=== PATIENT | male | born 1955 | race Caucasian/White ===

== ENCOUNTER 2025-10-04 15:40 | Emergency (ER) | payer MEDICARE, SELFPAY ==
--- OUTSIDE RECORDS SUMMARY | 2025-03-03 09:00 | XMS_ITS ---
Author Organization Dianna Barone MD, Address [address] [place] [address], [place] [address] Care Team Providers Care Portable Router Operator Name Role Phone Dianna Barone Primary Care Provider Ora Falcon Unavailable Angeles Cabezas Unavailable [phone] Encounters Encounter Location Date Provider Diagnosis [facility] [address] [place] [address] 03/03/2025 Angeles Cabezas Plan Of Treatment Next Appt Details Provider Name:Dianna Barone, 01:00:00 PM, [address], [place], [address], Provider Name:Ora boykin, 03/04/2026 12:20:00 PM, [address], [place], [address], Progress Notes * STUARTAntonyDOB: [birth year] (70 yo M)Acc No.[id number]:03/03/2025 MCA Plus Patient: Antony HOANG Provider: Alok Cabezas NP :1955 A ge:70 Y S ex:Male Date:03/03/2025 Address:[address] [place] [address], [phone] Pcp:Dianna Barone Subjective: * Chief Complaints: * * Medical History: Objective: * Vitals: Assessment: Plan: * Treatment: * Billing Information: * Visit Code: * Procedure Codes: Care Plan Details* * Electronic signature of Ana Cabezas NP on 10/04/2025 at 04:26 PM AQUACULTURE PROGRAM DIRECTOR Sign off status: Pending * Provider: Alok Cabezas NP Date: 0 03/03/2025 Generated for Uma marin/Rita/Carlos on: 12/05/2024 04:26 PM AQUACULTURE PROGRAM DIRECTOR
--- NOTE | ~2025-10-04 | XR_ITS ---
EXAMINATION: XR forearm LT 2V, XR wrist LT 2V DATE: 10/04/2025 17:09 INDICATION: Fracture. Post cast placement. TECHNIQUE: 2 views were obtained. COMPARISON: Previous study of same date. FINDINGS: Radiograph is made through plaster cast.. Comminuted impacted fracture of distal radius and fracture of ulnar styloid process are noted again. Mild angular deformity of the fracture at the distal radius. Soft tissue swelling at the fracture sites. IMPRESSION: 1. Fractures of distal radius and ulnar styloid process as described above. Reviewed, dictated and finalized at location T. [employer] IMPRESSION: 1. Fractures of distal radius and ulnar styloid process as described above.
--- NOTE | ~2025-10-04 | XR_ITS ---
EXAMINATION: XR wrist LT min 3V DATE: 10/04/2025 16:20 INDICATION: Trauma. TECHNIQUE: 4 views were obtained. COMPARISON: None. FINDINGS: Acute comminuted impacted fractures of distal radius. Mild angular deformity at the fracture site. Fracture of ulnar styloid process. IMPRESSION: 1. Acute comminuted impacted angulated fracture of distal radius and fracture of ulnar styloid process are noted at the left wrist. Reviewed, dictated and finalized at location T. [employer] IMPRESSION: 1. Acute comminuted impacted angulated fracture of distal radius and fracture o f ulnar styloid process are noted at the left wrist.
[2025-10-04 15:47] VITALS: BP 150/68; PULSE 61; RESP 16; TEMP 36.6; O2SAT 100
--- OUTSIDE RECORDS SUMMARY | 2025-10-04 16:26 | XMS_ITS | Clinical Summary ---
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 Gender Identity Not on file Sexual Orientation Not on file Plan of Treatment Health Maintenance Due Date Last Done Comments 1 YR COLONOSCOPY 1955 10 YR COLONOSCOPY 1955 2 YR COLONOSCOPY 1955 3 MONTHS COLONOSCOPY 1956 3 YR COLONOSCOPY 1956 4 YR COLONOSCOPY 1956 5 YEAR SIGMOIDOSCOPY 1956 5 YR COLONOSCOPY 1956 6 MONTHS COLONOSCOPY 1956 6 YR COLONOSCOPY 1956 7 YR COLONOSCOPY 1956 8 YR COLONOSCOPY 1956 9 YR COLONOSCOPY [address]T [address] Colonography 1955 Colorectal Cancer Screening 1955 MEDICARE ANNUAL WELLNESS VISIT 1955 HEPATITIS C SCREENING 01/27/1974 LIPID TESTING 01/27/1974 DTAP/TDAP/TD (1 - Tdap) 01/27/1975 ADDRESS PSA 1996 Pneumococcal 50+ (1 of 1 - PCV) 01/27/2006 ZOSTER (1 of 2) 01/27/2006 COVID-19 VACCINE (5 - 2025-26 season) 2025 07/27/2022, 08/10/2021, 01/25/2021, Additional history exists INFLUENZA (#1) 2025 07/26/2021, 04/2019, 07/22/2019, Additional history exists Diabetes Screening 01/17/2027 01/18/2024, 0 02/13/2023, 04/28/2021, Additional history exists MENINGOCOCCAL B (MENB) Aged Out No lo nger eligible based on patient's age [place] [id number] [facility] HMO OUT OF STATE MEDICARE A AND B * Guarantor: Antony Davidson Account Type Relation to Patient Date of Phone Billing Address Health [facility] Self [address] [place] [address] [place] [address]
--- OUTSIDE RECORDS SUMMARY | 2025-10-04 16:26 | XMS_ITS | Clinical Summary ---
Author Organization [facility], a Department of [facility] Address [address] [facility] [place] [address] Care Team Providers Care Blade Boner Name Role Phone Dianna Barone MD Primary Care Provider [phone] Allergies No known active allergies Medications DOCOSAHEXANOIC ACID/EPA (FISH OIL PO) Take 1,000 mg by mouth daily Active multivitamin (THERAGRAN,THERA ) tab Take 1 Tab by mouth daily Active omeprazole (PRILOSEC) 20 mg capsule Take 20 mg by mouth daily 05/18/2021 Active Active Problems No known active problems Social History Tobacco Use Types Packs/Day Years Used Date Smoking Tobacco: Never Smokeless Tobacco: Never Alcohol Use Standard Drinks/Week Comments No 0 (1 standard drink = 0.6 oz pur e alcohol) Sex and Gender Information Value Date Recorded Sex Assigned at Not on file Legal Sex Male 9:44 PM EST Gender Identity Not on file Sexual Orientation Not on file Last Filed Vital Signs Vital Sign Reading Time Taken Comments Blood Pressure 97/59 02/20/2023 12:46 PM CDT Pulse 62 02/20/2023 12:46 PM CDT Temperature 36.4 C (97.6 F) 02/20/2023 12:26 PM CDT Respiratory Rate 18 02/20/2023 12:46 PM CDT Oxygen Saturation 100% 02/20/2023 12:46 PM CDT Inhaled Oxygen Concentration - - Weight 57.7 kg (127 lb 4.8 oz) 02/20/2023 11:03 AM CDT Height 177.8 cm (5' 10) 02/20/2023 11:03 AM CDT Body Mass Index 18.27 02/20/2023 11:03 AM CDT Plan of Treatment Health Maintenance Due Date Last Done Comments Colorectal Cancer Screening - external PCP / no colon specialist 1955 Well Visit 01/27/1959 BMI followup 01/27/1974 Depression Screening 01/27/1974 Tdap/Td Vaccination (1 - Tdap) 01/27/1977 Pneumococcal Vaccination (1 of 1 - PCV) 01/27/2006 Zoster (Shingrix) Vaccinatio n (1 of 2) 01/27/2006 Lab-Lipid Screening 09/16/2013 Influenza Vaccination (#1) 05/16/202507/22, 07/29/2015, 09/02/2014, Additional history exists COVID-19 Vaccine (2024-2 6 season) 2025 08/10/2021, 01/25/2021, 12/22/2020 Insurance MEDICARE REPLACEMENT Care Teams Blade Boner Relationship Specialty Start Date End Date Dianna Barone MD PCP - General Internal Medicine 06/14/21
--- OUTSIDE RECORDS SUMMARY | 2025-10-04 16:26 | XMS_ITS | Encounter Summary ---
Author Organization [facility] Address [address] [place] [address] Care Team Providers Care Fiber Analyst Name Role Phone Dianna Barone MD Primary Care Provider [phone] Marielena Albarado MD Unavailable Dianna Barone MD Primary Care Provider [phone] Encounter Details Date Type Department Care Team (Late Contact Info) Description 01/29/2025 Orders Only [facility] PATIENT ACCESS [address] [place] [address] [place], [place] [address] [place] [address] Routine general medical examination at a health care facility (Primary Dx); Atherosclerosis of iqugmiut coronary artery, unspecified whether angina present, unspecified whether iqugmiut or transplanted heart; Hyperlipidemia, unspecified hyperlipidemia type; Vitamin D deficiency; Impaired fasting glucose Social History Tobacco Use Types Packs/Day Years Used Date Smoking Tobacco: Never Smokeless Tobacco: Never Alcohol Use Standard Drinks/Week Comments No 0 (1 standard drink = 0.6 oz pur e alcohol) Sex and Gender Information Value Date Recorded Sex Assigned at Not on file 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 Gender Identity Not on file Sexual Orientation Not on file documented as of this encounter Plan of Treatment Upcoming Encounters Date Type Department Care Team (Late st Contact Info) Description 09/17/2026 3:15 PM SANITARY CHEMIST Office Visit [facility] - Cardiology [address] [place] [address], [place] [address] Kervin Raymond MD [address] [facility] [address] [place] [address] documented as of this encounter Results * Lipid Panel with Reflex (01/29/2025 11:54 AM CDT) [facility] Cholesterol 118 0 - 199 mg/dL 01/29/2025 1:29 PM [facility] Comment: ATP III Total Cholesterol Classification: <200 mg/dL Desirable 200-239 mg/dL Borderline high >239 mg/dL High Triglycerides 57 0 - 149 mg/dL 01/29/2025 1:29 PM [facility] Comment: ATP III Triglycerides Classification: <150 mg/dL Normal 150-199 mg/dL Borderline high 200-499 mg/dL High >499 mg/dL Very high HDL Cholesterol 52 40 - 100 mg/dL 01/29/2025 1:29 PM [facility] Comment: ATP III HDL Cholesterol Classification: <40 mg/dL Low >59 mg/dL High LDL Cholesterol Friedewald Equation 55 0 - 129 mg/dL 01/29/2025 1:29 PM [facility] Comment: ATP III LDL Cholesterol Classification: <100 mg/dL Optimal 100-129 mg/dL Near optimal/above optimal 130-159 mg/dL Borderline high 160-189 mg/dL High >189 mg/dL Very high Non-HDL Cholesterol 66 0 - 159 mg/dL 01/29/2025 1:29 PM [facility] Chol/HDL Ratio 2.3 01/29/2025 1:29 PM [facility] Comment: Non-fasting lipids are endorsed by the 2013 [place] [employer]/[place] [employer] (ACC/AHA) guidelines, in which a follow-up fasting sample is recommended if triglycerides exceed normal levels. Fasting samples are also recommended prior to starting a treatment that could result in high triglycerides/hyperlipidemia and for monitoring of increased triglyceride/hyperlipidemia in familial hyperlipidemia. Plasma BLOOD SPECIMEN / Unknown Venipuncture / -0.01 mL 01/29/2025 11:54 AM CDT 01/29/2025 1:03 PM T us Angeles Lobato Case [facility] LAB BLOOD ORDERABLES Final R esult [facility] [address] [place] [address], [facility] [phone] [facility] [address] [facility] [place] [address], [place] [address] * (ABNORMAL) Comprehensive Metabolic Panel (01/29/2025 11:54 AM T) Glucose 100(H) 70 - 99 mg/dL 01/29/2025 1:29 PM [facility] BUN 10 7 - 21 mg/dL 01/29/2025 1:29 PM [facility] Creatinine 0.75 0.50 - 1.20 mg/dL 01/29/2025 1:29 PM [facility] eGFR CKD-EPI DERIVED 2020 98 60 - 200 mL/min/(1. 73_m2) 01/29/2025 1:29 PM [facility] Comment: This estimate should be used for screening purposes only. A creatinine clearance should be obtained for use adjusting medication dosages or when choosing potentially nephrotoxic medications. Reported eGFR is based on the CKD-EPI 2020 equation that does not use a race coefficient. Calcium 9.0 8.5 - 10.2 mg/dL 01/29/2025 1:29 PM [facility] Sodium 141 136 - 145 mmol/L 01/29/2025 1:29 PM [facility] Potassium 4.2 3.4 - 5.1 mmol/L 01/29/2025 1:29 PM [facility] Chloride 104 98 - 107 mmol/L 01/29/2025 1:29 PM [facility] CO2 30(H) 22 - 29 mmol/L 01/29/2025 1:29 PM [facility] Anion Gap 7 5 - 19 mmol/L 01/29/2025 1:29 PM [facility] Albumin 3.8 3.5 - 5.2 g/dL 01/29/2025 1:29 PM [facility] Bilirubin, Total 0.4 0.0 - 1.2 mg/dL 01/29/2025 1:29 PM [facility] Alkaline Phosphatase 77 40 - 129 U/L 01/29/2025 1:29 PM [facility] Protein, Total 6.3(L) 6.4 - 8.3 g/dL 01/29/2025 1:29 PM [facility] ALT (SGPT) 17 0 - 50 U/L 01/29/2025 1:29 PM [facility] AST (SGOT) 22 0 - 50 U/L 01/29/2025 1:29 PM [facility] Plasma BLOOD SPECIMEN / Unknown Venipuncture / -0.01 mL 01/29/2025 11:54 AM T 01/29/2025 1:03 PM T Angeles Cabezas [facility] BLOOD ORDERABLES Final R esult [facility] [address] [place] [address] [place] [address], [facility] [phone] [facility] [address] [facility] [place] [address] [place] [facility] * CBC with Differential (01/29/2025 11:54 AM T) WBC 5.35 4.50 - 11.00 10*3/uL 01/29/2025 1:05 PM [facility] RBC 4.24 4.20 - 5.70 10*6/uL 01/29/2025 1:05 PM [facility] HGB 13.2 12.0 - 17.5 g/dL 01/29/2025 1:05 PM [facility] HCT 40.6 35.0 - 52.5 % 01/29/2025 1:05 PM [facility] MCV 95.8 80.0 - 100.0 fL 01/29/2025 1:05 PM [facility] MCH 31.1 25.0 - 35.0 pg 01/29/2025 1:05 PM [facility] MCHC 32.5 31.0 - 37.0 g/dL 01/29/2025 1:05 PM [facility] RDW-SD 42.8 36.0 - 51.0 fL 01/29/2025 1:05 PM [facility] RDW-CV 12.2 11.6 - 14.2 % 01/29/2025 1:05 PM [facility] NRBCS % AUTOMATED 0.0 % 01/29/2025 1:05 PM [facility] NRBCS # AUTOMATED <0.01 0.00 - 0.10 10*3/uL 01/29/2025 1:05 PM [facility] MPV 9.5 9.2 - 12.8 fL 01/29/2025 1:05 PM [facility] PLT 286 130 - 450 10*3/uL 01/29/2025 1:05 PM [facility] Neutrophils # 2.90 1.70 - 7.00 10*3/uL 01/29/2025 1:05 PM [facility] Lymphocytes # 1.86 1.50 - 4.00 10*3/uL 01/29/2025 1:05 PM [facility] Monocyte # 0.48 0.17 - 1.39 10*3/uL 01/29/2025 1:05 PM [facility] Eosinophils # 0.06 0.00 - 0.45 10*3/uL 01/29/2025 1:05 PM [facility] Basophils # 0.04 0.00 - 0.15 10*3/uL 01/29/2025 1:05 PM [facility] Immature Granulocyte # 0.01 0.00 - 0.04 10*3/uL 01/29/2025 1:05 PM [facility] Neutrophils % 54.2 % 01/29/2025 1:05 PM [facility] Lymphocytes % 34.8 % 01/29/2025 1:05 PM [facility] Monocytes % 9.0 % 01/29/2025 1:05 PM [facility] Eosinophils % 1.1 % 01/29/2025 1:05 PM [facility] Basophils % 0.7 % 01/29/2025 1:05 PM [facility] Immature Granulocyte % 0.2 % 01/29/2025 1:05 PM [facility] Whole blood BLOOD SPECIMEN / Unknown Venipuncture / -0.01 mL 01/29/2025 11:54 AM CDT 01/29/2025 12:59 PM T us Angeles Cabezas [facility] BLOOD ORDERABLES Final R esult [address] [place] [address] [place] [address] [place] [address] * VITAMIN D 25-OH (01/29/2025 11:54 AM CDT) VITAMIN D 25-OH 40.0 30.0 - 100.0 ng/mL 01/29/2025 1:40 PM CDT [facility] Comment: VITAMIN D REFERENCE RANGES: DEFICIENCY: <21 ng/mL INSUFFICIENCY: 21-29 ng/mL SUFFICIENCY: 30-100 ng/mL Megadoses of biotin may interfere with this assay resulting in falsely elevated and/or decreased results. Biotin ingestion at the daily recommended allowance of 30 ug/day will not cause assay interference. Samples should not be taken from patients receiving therapy with high biotin doses (i.e. >5 mg/day) until at least 8 hours after the last biotin administration. BLOOD SPECIMEN / Unknown Venipuncture / -0.01 mL 01/29/2025 11:54 AM CDT 01/29/2025 1:05 PM CDT Angeles Cabezas [facility] BLOOD ORDERABLES Final R [facility] [address] [place] [address] [place] [address] [place] [address] * Hemoglobin A1C (01/29/2025 11:54 AM CDT) Hemoglobin A1C 5.6 4.0 - 5.6 % 01/29/2025 1:54 PM CDT [facility] Estimated Avg Glucose 114 mg/dL 01/29/2025 1:54 PM CDT [facility] Whole blood BLOOD SPECIMEN / Unknown Venipuncture / -0.01 mL 01/29/2025 11:54 AM CDT 01/29/2025 12:58 PM CDT Angeles A Case [facility] BLOOD ORDERABLES Final R esult [address] [place] [facility], [facility] [phone] [place] [address] * TSH with Reflex (01/29/2025 11:54 AM CDT) TSH 0.94 0.27 - 4.20 u[IU]/mL 01/29/2025 1:29 PM CDT [facility] Plasma BLOOD SPECIMEN / Unknown Venipuncture / -0.01 mL 01/29/2025 11:54 AM CDT 01/29/2025 1:03 PM CDT Angeles Cheryle Case [facility] BLOOD ORDERABLES Final R esult Performing Organization Address City/[facility]/ZIP Co de Phone Number [address], [place] [facility], [facility] [phone] [place] [facility] documented in this encounter Visit Diagnoses Diagnosis Routine general medical examination at a health care facility- Primary Atherosclerosis of iqugmiut coronary artery, unspecified whether angina present, unspecified whether iqugmiut or transplanted heart Hyperlipidemia, unspecified hyperlipidemia type Vitamin D deficiency Unspecified vitamin D deficiency Impaired fasting glucose documented in this encounter Additional Health Concerns Assessment Noted Time A fall risk assessment has been complete d for the patient 07/03/2023 8:46 PM CDT documented as of this encounter Care Teams Fiber Analyst Relationship Specialty Start Date End Date Dianna Barone MD PCP - General Internal Medicine 12/08/15 08/05/25 Dianna Barone MD [address] [place] [facility] PCP - General Internal Medicine 08/06/25 [place] [address] [place], [place] [id number] Cardiology 06/28/16 documented as of this encounter
--- OUTSIDE RECORDS SUMMARY | 2025-10-04 16:26 | XMS_ITS | Encounter Summary ---
Author Organization [facility] Address [address] [place] [address] Care Team Providers Care Reporting Lead Name Role Phone Marielena Albarado MD Unavailable Dianna Barone MD Primary Care Provider [phone] Encounter Details Date Type Department Care Team (Late Contact Info) Description 08/06/2025 Orders Only [facility] PATIENT ACCESS [address] [place] [address] Ora Falcon NP [address] [place] [address] Screening for iron deficiency anemia (Primary Dx); Screening, multiphasic; Disease of cardiovascular system; Hyperlipidemia, unspecified hyperlipidemia type; Prostate cancer screening Social History Tobacco Use Types Packs/Day Years Used Date Smoking Tobacco: Never Smokeless Tobacco: Never Alcohol Use Standard Drinks/Week Comments No 0 (1 standard drink = 0.6 oz pur e alcohol) Sex and Gender Information Value Date Recorded Sex Assigned at Not on file 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 Gender Identity Not on file Sexual Orientation Not on file documented as of this encounter Plan of Treatment Upcoming Encounters Date Type Department Care Team (Late Contact Info) Description 09/17/2026 3:15 PM PIANO PROFESSOR Office Visit [facility] Medical [facility] - Cardiology [address] [place] [address] Kervin Raymond MD [address] [place] [address], [place] [address] documented as of this encounter Results * CBC with Differential (08/07/2025 12:44 PM CDT) WBC 6.35 4.50 - 11.00 10*3/uL 08/07/2025 12:54 PM CDT [facility] RBC 4.43 4.20 - 5.70 10*6/uL 08/07/2025 12:54 PM T [facility] HGB 13.8 12.0 - 17.5 g/dL 08/07/2025 12:54 PM T [facility] HCT 42.6 35.0 - 52.5 % 08/07/2025 12:54 PM [facility] MCV 96.2 80.0 - 100.0 fL 08/07/2025 12:54 PM [facility] MCH 31.2 25.0 - 35.0 pg 08/07/2025 12:54 PM [facility] MCHC 32.4 31.0 - 37.0 g/dL 08/07/2025 12:54 PM [facility] RDW-SD 42.2 36.0 - 51.0 fL 08/07/2025 12:54 PM [facility] RDW-CV 11.9 11.6 - 14.2 % 08/07/2025 12:54 PM [facility] NRBCS % AUTOMATED 0.0 % 08/07/2025 12:54 PM [facility] NRBCS # AUTOMATED <0.01 0.00 - 0.10 10*3/uL 08/07/2025 12:54 PM T [facility] MPV 9.4 9.2 - 12.8 fL 08/07/2025 12:54 PM T [facility] PLT 304 130 - 450 10*3/uL 08/07/2025 12:54 PM T [facility] Neutrophils # 3.37 1.70 - 7.00 10*3/uL 08/07/2025 12:54 PM T [facility] Lymphocytes # 2.31 1.50 - 4.00 10*3/uL 08/07/2025 12:54 PM T [facility] Monocyte # 0.52 0.17 - 1.39 10*3/uL 08/07/2025 12:54 PM T [facility] Eosinophils # 0.11 0.00 - 0.45 10*3/uL 08/07/2025 12:54 PM [facility] Basophils # 0.03 0.00 - 0.15 10*3/uL 08/07/2025 12:54 PM [facility] Immature Granulocyte # 0.01 0.00 - 0.04 10*3/uL 08/07/2025 12:54 PM [facility] Neutrophils % 53.0 % 08/07/2025 12:54 PM [facility] Lymphocytes % 36.4 % 08/07/2025 12:54 PM [facility] Monocytes % 8.2 % 08/07/2025 12:54 PM [facility] Eosinophils % 1.7 % 08/07/2025 12:54 PM [facility] Basophils % 0.5 % 08/07/2025 12:54 PM [facility] Immature Granulocyte % 0.2 % 08/07/2025 12:54 PM [facility] Whole blood BLOOD SPECIMEN / Unknown Venipuncture / -0.01 mL 08/07/2025 12:44 PM CDT 08/07/2025 12:44 PM CDT Ora Falcon BOX COVERING MACHINE OPERATOR LAB BLOOD ORDERABLES Final Result [address] [place] [address] [phone] [place] [address] * Folate (08/07/2025 12:38 PM CDT) [facility] Folate 16.0 4.8 - 24.2 ng/mL 08/07/2025 1:43 PM [facility] Comment: Megadoses of biotin may interfere with this [...] SPECIMEN / Unknown Venipuncture / -0.01 mL 08/07/2025 12:38 PM CDT 08/07/2025 12:38 PM CDT Ora Falcon BOX COVERING MACHINE OPERATOR LAB BLOOD ORDERABLES Final Result Performing Organization Address [facility] Co de Phone Number [address] [place] [facility], [facility] [phone] [place] [address] * PSA, Serum (08/07/2025 12:38 PM CDT) PSA, SERUM 0.62 0.00 - 4.00 ng/mL 08/07/2025 1:43 PM CDT [facility] Comment: Values obtained from different assay methods cannot be directly compared, and thus cannot be used interchangeably. The PSA testing method is an electrochemiluminescence immunoassay manufactured by [employer] and performed on the Vilma [id number]. BLOOD SPECIMEN / Unknown Venipuncture / -0.01 mL 08/07/2025 12:38 PM CDT 08/07/2025 12:38 PM CDT Ora Falcon BOX COVERING MACHINE OPERATOR LAB BLOOD ORDERABLES Final Result Performing Organization Address [facility] Co de Phone Number [address] [place] [address] [place] [address] [place] [address] * LDL Cholesterol, Direct (08/07/2025 12:38 PM CDT) LDL Cholesterol, Direct 67 0 - 129 mg/dL 08/07/2025 1:12 PM CDT [facility] Comment: ATP III LDL Cholesterol Classification: <100 mg/dL Optimal 100-129 mg/dL Above optimal 130-159 mg/dL Borderline high 160-189 mg/dL High >189 mg/dL Very high Plasma BLOOD SPECIMEN / Unknown Venipuncture / -0.01 mL 08/07/2025 12:38 PM CDT 08/07/2025 12:38 PM CDT us Ora Ezekiel HERNANDEZ LAB BLOOD ORDERABLES Final Result [facility] [address] [facility] [place] [address], [facility] [phone] [facility] [address] [facility]/[address] [place] [address], [place] [address] * Lipid Panel with Reflex (08/07/2025 12:38 PM CDT) [facility] Signature Cholesterol 135 0 - 199 mg/dL 08/07/2025 1:12 PM [facility] Comment: ATP III Total Cholesterol Classification: <200 mg/dL Desirable 200-239 mg/dL Borderline high >239 mg/dL High Triglycerides 52 0 - 149 mg/dL 08/07/2025 1:12 PM [facility] Comment: ATP III Triglycerides Classification: <150 mg/dL Normal 150-199 mg/dL Borderline high 200-499 mg/dL High >499 mg/dL Very high HDL Cholesterol 64 40 - 100 mg/dL 08/07/2025 1:12 PM [facility] Comment: ATP III HDL Cholesterol Classification: <40 mg/dL Low >59 mg/dL Acceptable LDL Cholesterol Friedewald Equation 61 0 - 129 mg/dL 08/07/2025 1:12 PM [facility] Comment: ATP III LDL Cholesterol Classification: <100 mg/dL Optimal 100-129 mg/dL Above optimal 130-159 mg/dL Borderline high 160-189 mg/dL High >189 mg/dL Very high Non-HDL Cholesterol 71 mg/dL 08/07/2025 1:12 PM [facility] Chol/HDL Ratio 2.1 08/07/2025 1:12 PM [facility] Comment: Non-fasting lipids are endorsed by the 2013 [place] [employer]/[place] [employer] (ACC/AHA) guidelines, in which a follow-up fasting sample is recommended if triglycerides exceed normal levels. Fasting samples are also recommended prior to starting a treatment that could result in high triglycerides/hyperlipidemia and for monitoring of increased triglyceride/hyperlipidemia in familial hyperlipidemia. Plasma BLOOD SPECIMEN / Unknown Venipuncture / -0.01 mL 08/07/2025 12:38 PM CDT 08/07/2025 12:38 PM CDT Ora Falcon NP LAB BLOOD ORDERABLES Final Result [facility] [address] [place] [address], [facility] [phone] [facility] [address] [facility]/[address] [place] [address], [place] [address] * (ABNORMAL) Basic Metabolic Panel (08/07/2025 12:38 PM CDT) [facility] Glucose 99 70 - 99 mg/dL 08/07/2025 1:12 PM [facility] BUN 15 7 - 21 mg/dL 08/07/2025 1:12 PM [facility] Creatinine 0.87 0.50 - 1.20 mg/dL 08/07/2025 1:12 PM [facility] eGFR CKD-EPI DERIVED 2020 93 60 - 200 mL/min/(1. 73_m2) 08/07/2025 1:12 PM [facility] Comment: This estimate should be used for screening purposes only. A creatinine clearance should be obtained for use adjusting medication dosages or when choosing potentially nephrotoxic medications. Reported eGFR is based on the CKD-EPI 2020 equation that does not use a race coefficient. Calcium 9.3 8.5 - 10.2 mg/dL 08/07/2025 1:12 PM [facility] Sodium 140 136 - 145 mmol/L 08/07/2025 1:12 PM [facility] Potassium 4.3 3.4 - 5.1 mmol/L 08/07/2025 1:12 PM [facility] Chloride 100 98 - 107 mmol/L 08/07/2025 1:12 PM [facility] CO2 32(H) 22 - 29 mmol/L 08/07/2025 1:12 PM [facility] Anion Gap 8 5 - 19 mmol/L 08/07/2025 1:12 PM [facility] Plasma BLOOD SPECIMEN / Unknown Venipuncture / -0.01 mL 08/07/2025 12:38 PM CDT 08/07/2025 12:38 PM CDT Ora Falcon BOX COVERING MACHINE OPERATOR LAB BLOOD ORDERABLES Final Result [address], [place] [facility], [facility] [phone] [place] [facility] * Vitamin B12 (08/07/2025 12:38 PM CDT) Vitamin B-12 969 232 - 1,245 pg/mL 08/07/2025 1:43 PM CDT [facility] Comment: Megadoses of biotin may interfere with this [...] SPECIMEN / Unknown Venipuncture / -0.01 mL 08/07/2025 12:38 PM CDT 08/07/2025 12:38 PM CDT Ora Falcon BOX COVERING MACHINE OPERATOR LAB BLOOD ORDERABLES Final Result Performing Organization Address City/[facility]/ZIP Co de Phone Number [address] [place] [facility], [facility] [phone] [place] [facility] * Urinalysis with Microscopic Reflex to Culture (08/07/2025 12:32 PM CDT) Type CLEAN CATCH 08/07/2025 3:15 PM CDT [facility] Color Yellow YELLOW 08/07/2025 3:15 PM CDT [facility] Appearance Clear CLEAR 08/07/2025 3:15 PM CDT [facility] Specific [place] 1.007 1.005 - 1.030 08/07/2025 3:15 PM CDT [facility] pH 7.0 5.0 - 8.0 08/07/2025 3:15 PM [facility] Protein Negative NEGATIVE mg/dL 08/07/2025 3:15 PM [facility] Glucose Negative NEGATIVE mg/dL 08/07/2025 3:15 PM [facility] Ketones Negative NEGATIVE mg/dL 08/07/2025 3:15 PM [facility] Bililrubin Negative NEGATIVE 08/07/2025 3:15 PM [facility] Blood Negative NEGATIVE 08/07/2025 3:15 PM [facility] Nitrites Negative NEGATIVE 08/07/2025 3:15 PM [facility] Urobilinogen Normal NORMAL mg/dL 08/07/2025 3:15 PM [facility] WBC Esterase Negative NEGATIVE 08/07/2025 3:15 PM [facility] RBC 1 0 - 3 /[HPF] 08/07/2025 3:15 PM [facility] WBC 0 0 - 3 /[HPF] 08/07/2025 3:15 PM [facility] Epithelial Cells 0 0 - 5 /[HPF] 08/07/2025 3:15 PM [facility] Hyaline Casts <4 0 - 3 /[LPF] 08/07/2025 3:15 PM [facility] Bacteria Negative NEGATIVE-TR SUDHAKAR /[HPF] 08/07/2025 3:15 PM [facility] Urine Culture Reflex Not Indicated 08/07/2025 3:15 PM [facility] Comment: Urine Culture NOT Indicated based on the outcome of testing of reflex criteria. Urine Unknown / -0.01 mL 12:32 PM T 08/07/2025 3:05 PM [facility] us Ora Falcon BOX COVERING MACHINE OPERATOR URINE ORDERABLES Jesika l Result [facility] [address] [place] [address], [facility] [phone] [facility] [address] [facility]/[address] [place] [address], [place] [address] documented in this encounter Visit Diagnoses Diagnosis Screening for iron deficiency anemia- Primary Screening, multiphasic Multiphasic screening Disease of cardiovascular system Unspecified cardiovascular disease Hyperlipidemia, unspecified hyperlipidemia type Prostate cancer screening Special screening for malignant neoplasm of prostate documented in this encounter Additional Health Concerns Assessment Noted Time A fall risk assessment has been complete d for the patient 07/03/2023 8:46 PM CDT documented as of this encounter Care Teams Reporting Lead Relationship Specialty Start Date End Date Dianna Barone MD [address] [facility] [place] [address] PCP - General Internal Medicine 08/06/25 [place] [address] [place] [address] Cardiology 06/28/16 documented as of this encounter
--- OUTSIDE RECORDS SUMMARY | 2025-10-04 16:26 | XMS_ITS | Patient Health Record ---
Author Organization Dianna Barone MD, Address [address] [place] [address], [place] [address] Care Team Providers Care Community Living Coach Name Role Phone Dianna Barone Primary Care Provider [phone] Ora Falcon Unavailable Angeles Cabezas Unavailable [phone] Allergies No Known Allergies Reason For Referral Reason evaluate and treat Diagnosis 1 Bilateral impacted c erumen (H61.23) Referral Organization [facility] Referring Provider First Name Chuckie madera Referring Provider Last Name Ezekiel Referring Provider Speciality Nurse Prac titioner Referred Provider CECI LANDIS Referred Provider Specialty Otolaryngolo gy General Notes Jolene Mathews 02/06 09:46:55 AM > visit note Darby montiel Shanita R 02/19/2025 10:34:34 AM > auth submitted...see TE Referral Priority Routine Reason evaluate and treat Diagnosis 1 Pain, joint, knee, l eft (M25.562) Referral Organization [facility] Referring Provider First Name Chuckie madera Referring Provider Last Name Ezekiel Referring Provider Speciality Nurse Prac titioner Referred Provider [facility] Physical Therapy Referred Provider Specialty Physical The rapist General Notes ARCADIO OSULLIVAN 03:05:06 PM >FAXED Referral Priority Routine Medications Medication SIG (Take, Route, Frequency, Duration) Notes Start Date End Date Status Aspirin 81 81 MG 1 tablet Orally Once a day Active Multivitamins Orally once a day Active Cyclobenzaprine HCl 5 MG 1-2 tablets as needed Orally Every 8 hours Active Atorvastatin Calcium 10 MG 1 tablet in t he evening Orally Once a day Active Omeprazole 20 MG 1 capsule 30 minutes before morning meal Orally Once a day Active Fish Oil 1200 MG 1 capsule Orally Onc e a day Active Vitamin D3 50 MCG (1999) TAKE 1 CAPSU LE BY MOUTH EVERY DAY FOR 90 DAYS Active Social History Tobacco Use: Social History Observation Description Date Details (start date - stop date) Former Smoker NA - NA Alcohol Question Answer Notes Did you have a drink containing alcohol in the p ast year? No Points 0 Interpretation Negative AUDIT-C (Standard) Question Answer Notes Did you have a drink containing alcohol in the p ast year? 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) Active confirmed Resolved on repeat EGD Problem Hemorrhoids (66878539) Other hemorrhoids (K64.8) Active confirmed Problem Acquired spondylolisthesis (161540688) Spondylolisthesi s, lumbar region (M43.16) Active confirmed Problem Lumbosacral spondylosis without myelopathy (32800009) Other spondylosis, lumbar region (M47.896) Active confirmed Problem Spinal stenosis of lumbar region (39486013) Spinal stenosis, lumbar region (M48.06) Active confirmed Problem Shortness of breath (044879868) Shortness of breath (R06.02) Active confirmed Problem Abnormal glucose level (956357511) Other abnormal glucose (R73.09) Active confirmed Problem Solitary pulmonary nodule (856638711) Solitary pulmonary nodule (R91.1) Active confirmed Chest CT stable 8mm nodule in right lung. 07/05/16 Problem Vitamin D deficiency (91829294) Vitamin D deficiency (E55.9) Active confirmed Problem Pulmonary nodule (259326393) Pulmonary nodule (R91.1) Active confirmed Problem Dyslipidemia (781876697) Dyslipidemia (E78.5) Active confirmed 10 year ascvd risk 7.9% Problem Pain in wrist (48585161) Left wrist pain (M25.532) Active confirmed Problem Atherosclerotic heart disease of [place] coronary artery without angina pectoris (321720079655584) Coronary artery disease involving [place] coronary artery of [place] heart without angina pectoris (I25.10) Active confirmed Proximal LCX and mid RCA- 20% Problem Lumbar radiculopathy (814052357) Lumbar radiculopathy, acute (M54.16) Active confirmed Problem Degenerative disc disease (64515985) DDD (degenerative disc disease), lumbar (M51.36) Active confirmed Problem Screening for malignant neoplasm of prostate (039137134) Screening for prostate cancer (Z12.5) Active confirmed Problem Degeneration of lumbosacral intervertebral disc (22619044) DDD (degenerative disc disease), lumbosacral (M51.37) Active confirmed Problem Renal calculus (28086498) Renal calculi (N20.0) Active confirmed Problem Atherosclerotic heart disease of [place] coronary artery without angina pectoris (027572732727140) Non-occlusive coronary artery disease (I25.10) Active confirmed Problem Hyperlipidemia (28714765) Dyslipidemia, goal LDL below 70 (E78.5) Active confirmed Problem Genital herpes simplex (69251545) Genital herpes in men (A60.02) Active confirmed Problem Left inguinal hernia (917318391) Left inguinal hernia (K40.90) Active confirmed Problem Non-rheumatic mitral regurgitation (041108943) Nonrheumatic mitral valve regurgitation (I34.0) Active confirmed Problem 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) Active confirmed Problem Ectasia of thoracic aorta (803758608718662) Aortic ectasia, thoracic (I77.810) Active confirmed Problem Abnormal findings on diagnostic imaging of heart and coronary circulation (799058100) Agatston CAC score 200-399 (R93.1) Active confirmed Problem Abnormal results of cardiovascular function studies (559510559) Abnormal stress ECG with treadmill (R94.39) Active confirmed Vital Signs Respiratory Rate 18 /min 08/13/2025 Blood pressure diastolic 69 mm Hg 08/13/2025 Oximetry 97 08/13/2025 Height 70 in 08/13/2025 Blood pressure systolic 115 mm Hg 08/13/2025 Weight 129 lbs 08/13/2025 BMI 18.51 kg/m2 08/13/2025 Encounters Encounter Location Date Provider Diagnosis [facility] [address] [place] [address] 02/04/2025 Konstantina Gardikiotes Bilateral impacted cerumen H61.23 ; Annual physical exam Z00.00 ; Coronary artery disease involving [place] coronary artery of [place] heart without angina pectoris I25.10 ; Spondylolisthesis, lumbar region M43.16 ; Dyslipidemia, goal LDL below 70 E78.5 ; Vitamin D deficiency E55.9 ; Impaired fasting glucose R73.01 ; Gastro-esophageal reflux disease without esophagitis K21.9 ; Screening for blood or protein in urine Z13.89 ; Screening for iron deficiency anemia Z13.0 and Prostate cancer screening Z12.5 [facility] [address] [place] [address] 08/13/2025 Konstantina Gardikiotes Pain, joint, knee, left M25.562 ; Coronary artery disease involving [place] coronary artery of [place] heart without angina pectoris I25.10 ; Dyslipidemia, goal LDL below 70 E78.5 ; Vitamin D deficiency E55.9 ; Gastro-esophageal reflux disease without esophagitis K21.9 and Spondylolisthesis, lumbar region M43.16 [facility] [address] [place] [address] 02/12/2025 [facility] [address] [place] [address] 06/23/2025 Dianna Barone Dyslipidemia, goal LDL below [address] [address] [place] [address] 08/06/2025 [facility] [address] [place] [address] 08/07/2025 Konstantina Gardikiotes Assessments Encounter Date Diagnosis (ICD Code) Assessment Notes Treatment Notes Treatment Clinical Notes Section Notes 02/04/2025 Annual physical exam (ICD-10 - Z00.00) I discussed diet, exercise, maintenance of a healthy body mass index, avoidance of tobacco, moderation of alcohol and stress reduction as a part of a healthy lifestyle. Preventive measures discussed. Cancer Screening discussed. Age appropriate screening discussed. 02/04/2025 Bilateral impacted cerumen (ICD-10 - H61.23) Complains today that he feels he has wax buildup in bothe his ears. Has tried the drops at home but they have not helped. Irrigated in office but continues to have wax. Will refer to ENT for further evaluation 06/23/2025 Dyslipidemia, goal LDL below 70 (ICD-10 - E78.5) 08/13/2025 Coronary artery disease involving [place] coronary artery of [place] heart without angina pectoris (ICD-10 - I25.10) Proximal LCX and mid RCA- 20% 02/2023 Moderate to severely elevated total coronary artery calcium score of 399.on statin therapy 08/13/2025 Pain, joint, knee, left (ICD-10 - M25.562) will do an xray and send for physical therapy unsure if he will complete it 08/13/2025 Dyslipidemia, goal LDL below 70 (ICD-10 - E78.5) 08/07/25 LDL Cholesterol Friedewald Equation: 61 Hyperlipidemia is currently at/not at goal. Patient is on statin therapy. Denies any negative side effects including myalgias. Patient is compliant with medications as listed above. No change in medication management. Discussed a low-cholesterol diet and healthy lifestyle. 02/04/2025 Coronary artery disease involving [place] coronary artery of [place] heart without angina pectoris (ICD-10 - I25.10) Proximal LCX and mid RCA- 20% 02/2023 Moderate to severely elevated total coronary artery calcium score of 399. 02/04/2025 Spondylolisthesi s, lumbar region (ICD-10 - M43.16) 08/13/2025 Vitamin D deficiency (ICD-10 - E55.9) 01/29/25 VITAMIN D 25-OH: 40.0 Vitamin D deficiency is controlled. Continue with vitamin D supplementation . Discussed sun exposure, calcium and vitamin D dietary intake. Denies any fatigue or muscle weakness. No history of CKD, IBDs, celiac, CF or surgeries causing malabsorption. 08/13/2025 Gastro-esophagea l reflux disease without esophagitis (ICD-10 - K21.9) 02/04/2025 Dyslipidemia, goal LDL below 70 (ICD-10 - E78.5) 01/29/25 LDL Cholesterol: 55 02/04/2025 Vitamin D deficiency (ICD-10 - E55.9) Vitamin D deficiency is controlled. Continue with vitamin D supplementation . Discussed sun exposure, calcium and vitamin D dietary intake. Denies any fatigue or muscle weakness. No history of CKD, IBDs, celiac, CF or surgeries causing malabsorption. 08/13/2025 Spondylolisthesi s, lumbar region (ICD-10 - M43.16) 02/04/2025 Impaired fasting glucose (ICD-10 - R73.01) 02/04/2025 Gastro-esophagea l reflux disease without esophagitis (ICD-10 - K21.9) 02/04/2025 Screening for blood or protein in urine (ICD-10 - Z13.89) 02/04/2025 Screening for iron deficiency anemia (ICD-10 - Z13.0) 02/04/2025 Prostate cancer screening (ICD-10 - Z12.5) 02/04/2025 Other 08/13/2025 Other Plan Of Treatment Pending Test Test Name Order Date X ray : Knee, left 2 views 08/13/2025 -EAR IRRIGATION 04/29/2019 Future Test Test Name Order Date -TSH 12/10/2015 -LIPID PANEL 12/10/2015 -PROSTATE-SPECIFIC ANTIGEN(PSA),SERUM -COMP METABOLIC PANEL 12/10/2015 -VITAMIN D, 25-HYDROXY 12/10/2015 -CBC w/DIFF/PLATELEL 12/10/2015 -BASIC METABOLIC PANEL 05/30/2016 CT Chest W Contrast 05/30/2016 CT Chest Wo Contrast 07/14/2016 -TSH 01/20/2017 -LIPID PANEL 01/20/2017 -PROSTATE-SPECIFIC ANTIGEN(PSA),SERUM -COMP METABOLIC PANEL 01/20/2017 -VITAMIN D, 25-HYDROXY 01/20/2017 -CBC w/DIFF/PLATELEL 01/20/2017 -HEMOGLOBIN A1C 01/20/2017 -TSH 07/27/2017 -LIPID PANEL 07/27/2017 -COMP METABOLIC PANEL 07/27/2017 -VITAMIN D, 25-HYDROXY 07/27/2017 -CBC w/DIFF/PLATELEL 07/27/2017 -HEMOGLOBIN A1C 07/27/2017 -LIPID PANEL 09/05/2018 -PROSTATE-SPECIFIC ANTIGEN(PSA),SERUM -COMP METABOLIC PANEL 09/05/2018 -CBC w/DIFF/PLATELEL 09/05/2018 MRI : Lumbosacral Spines 09/03/2019 Pulmonary Function Test 09/03/2019 2-D ECHOCARDIOGRAM W/DOPPLER 09/03/2019 *CBC with differential 09/04/2019 *Comprehensive Metabolic Panel (aka COMP ) 09/04/2019 *TSH 09/04/2019 *Lipid Panel with reflex 09/04/2019 *PSA 09/04/2019 *Hemoglobin A1C (aka HBA1C) 09/04/2019 CT Scan : Abd & Pelvis without contrast 12/12/2019 *Renal Function Panel 12/12/2019 *CBC with differential 04/28/2021 *Comprehensive Metabolic Panel (aka COMP ) 04/28/2021 *TSH 04/28/2021 *Lipid Panel with reflex 04/28/2021 *Hemoglobin A1C (aka HBA1C) 04/28/2021 *Vitamin D 25-OH 04/28/2021 M genitalium NAOMIE, Urine-[id number] CT Pelvis 03/29/2022 Ultrasound : Pelvis 04/26/2022 Hemoglobin D7x-550926 04/26/2022 TSH-521222 04/26/2022 CBC With Differential, Reflex to Periphe ral Smear Review-[id number] 04/26/2022 Vitamin D, 73-Bnwbiri-886585 04/26/2022 HCV Antibody-[id number] 04/26/2022 Comp. Metabolic Panel [phone] UA/M w/rflx Culture, Routine-[id number] 04/15 PSA Total (Reflex To Free)-904739 2021 Lipid Profile reflex to Direct LDL-C 09/2022 HCV Antibody-[id number] 05/25/2022 *CBC with differential 05/26/2022 *Comprehensive Metabolic Panel (aka COMP ) 05/26/2022 *TSH 05/26/2022 *PSA 05/26/2022 *Vitamin D 25-OH 05/26/2022 CT coronary calcium score 11/23/2022 Hemoglobin S7j-551569 02/20/2023 TSH-590789 02/20/2023 CBC With Differential, Reflex to Periphe ral Smear Review-[id number] 02/20/2023 Vitamin D, 27-Motiarn-197685 02/20/2023 Comp. Metabolic Panel (14)-2022 UA/M w/rflx Culture, Routine-[id number] 05/2023 Lipid Profile reflex to Direct LDL-C 05/2023 ECG 04/03/2023 2d echocardiogram 04/13/2023 Treadmill stress EKG 04/13/2023 High-sensitivity CRP (Cardiac CRP)-87007 6 07/04/2023 Comp. Metabolic Panel (14)-188532 2022 Lipid Profile reflex to Direct LDL-C High-sensitivity CRP (Cardiac CRP)-69327 6 09/03/2023 Hepatic Function Panel [phone] Basic Metabolic Panel ([phone] Lipid Profile reflex to Direct LDL-C Hemoglobin A3s-975917 02/23/2024 TSH-642712 02/23/2024 CBC With Differential, Reflex to Periphe ral Smear Review-02/23/2024 Vitamin D, 02-Isfohgv-997074 02/23/2024 Comp. Metabolic Panel (14)-2023 PSA Total (Reflex To Free)-873232 2023 Lipid Profile reflex to Direct LDL-C 07/2024 X ray : Elbow, left, 2 or 3 views 2023 Hemoglobin V2a-985190 03/04/2024 Magnesium-593378 03/04/2024 TSH-655928 03/04/2024 CBC With Differential, Reflex to Periphe ral Smear Review-[id number] 03/04/2024 Vitamin D, 96-Dzugzjf-251757 03/04/2024 Comp. Metabolic Panel (14)-2023 UA/M w/rflx Culture, Routine-843548 02/14 Lipid Profile reflex to Direct LDL-C X ray : LS Spine 04/02/2024 Hemoglobin D1i-844151 08/31/2024 TSH-948231 08/31/2024 CBC With Differential, Reflex to Periphe ral Smear Review-[id number] 08/31/2024 Vitamin D, 36-Isoupfn-171002 08/31/2024 Comp. Metabolic Panel (14)-925233 2023 PSA Total (Reflex To Free)-235260 2023 Lipid Profile reflex to Direct LDL-C MRI : Lumbar spine without contrast 03/2024 Vitamin B12 and Folate-120814 02/04/2025 Iron and TIBC-291603 02/04/2025 Ferritin-090251 02/04/2025 CBC With Differential, Reflex to Periphe ral Smear Review-02/04/2025 Basic Metabolic Panel ([phone] UA/M w/rflx Culture, Comp-401790 PSA Total (Reflex To Free)-762269 2024 Lipid Profile reflex to Direct LDL-C Hemoglobin X0a-411202 03/02/2025 CBC With Differential, Reflex to Periphe ral Smear Review-[id number] 03/02/2025 Vitamin D, 53-Koxhmrd-175268 03/02/2025 Comp. Metabolic Panel (14)-823684 2024 TSH Rfx on Abnormal to Free [id number] Lipid Profile reflex to Direct LDL-C Hemoglobin B9a-221966 08/13/2025 CBC With Differential, Reflex to Periphe ral Smear Review-[id number] 08/13/2025 Vitamin D, 34-Ykxvngy-980167 08/13/2025 Comp. Metabolic Panel (14)-684468 2024 TSH Rfx on Abnormal to Free T4-940348 Lipid Profile reflex to Direct LDL-C Next Appt Details Provider Name:Dianna Barone, 01:00:00 PM, [address] [address], [place], [address], Provider Name:Ora boykin, 03/04/2026 12:20:00 PM, [address] [facility] [address], [place], [address], Insurance Providers Payer Name Payer Address Payer Phone Subscriber Number Group Number Insured Name Patient Relationship to Insured Coverage Start Date Coverage End Date [facility] [employer] [address] [place] [address] [id number] [facility] [address] [place], [place] Self - patient is the insured Medical (General) History Medical History History ICD Code Renal calculi N20.0 Genital herpes in men A60.02 Cruz's esophagus without dysplasia K2 2.70 Spinal stenosis, lumbar region M48.06 Aortic Ectasia Non occlusive calcified CAD Surgical History Surgery Date(Month/Year) Cyst removed from thigh and neck 2008 Knee Surgery 2009 Hospitalization History Reason Date(Month/Year)
--- OUTSIDE RECORDS SUMMARY | 2025-10-04 16:26 | XMS_ITS | Clinical Summary ---
Author Organization [facility] Address [address] [place] [address] Care Team Providers Care Flat Hammerer Name Role Phone Marielena Albarado MD Unavailable Dianna Barone MD Primary Care Provider [phone] Allergies No known active allergies Medications Multiple Vitamin (MULTIVITAMIN) TABS Take 1 tablet by mouth in the morning. Active Cambridge-3 Fatty Acids (OMEGA-3 FISH OIL) 1050 MG CAPS Take 1,200 mg by mouth daily Active omeprazole (PRILOSEC) 20 MG capsule Take 1 capsule (20 mg) by mouth daily 90 capsule 2 05/18/2021 Active aspirin 81 MG EC tablet Take 1 tablet (81 mg) by mouth in the morning. 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 023 Spondylolisthesis of lumbar region 03/10/2020 Spinal stenosis 03/10/2020 Degenerative disc disease, lumbar 03/10/2020 Gastroesophageal reflux disease with esophagitis 08/21/2019 Shortness of breath 08/21/2019 Encounters Date Type Department Care Team Description 09/25/2025 3:00 PM ASSISTANCE SPECIALIST Office Visit [facility] - Cardiology [address] [place] [address], [place] [address] Kervin Raymond MD Coronary artery disease due to lipid rich plaque (Primary Dx); Coronary artery calcification seen on CT scan; Dyslipidemia 08/07/2025 12:00 PM CDT - 08/07/2025 11:59 PM CDT Hospital Encounter [facility] [address] [facility] [place] [address] Dianna Barone MD Screening for iron deficiency anemia; Screening, multiphasic; Disease of cardiovascular system; Hyperlipidemia, unspecified hyperlipidemia type; Prostate cancer screening Discharge Disposition: Home or Self Care 08/06/2025 Orders Only PATIENT ACCESS [address] [facility] [place] [address] Ora Falcon NP Screening for iron deficiency anemia (Primary Dx); Screening, multiphasic; Disease of cardiovascular system; Hyperlipidemia, unspecified hyperlipidemia type; Prostate cancer screening 08/06/2025 Orders Only PATIENT ACCESS [address] [facility] [place] [address] Ora Falcon NP Special screening for malignant neoplasm of prostate (Primary Dx); Screening for iron deficiency anemia; Hyperlipidemia, unspecified hyperlipidemia type; Disease of cardiovascular system from Last 3 Months Immunizations Immunization Administration Dates Next Due COVID-19 PFIZER BIVALENT IRAHETA STER 12YRS+ CHAN CAP 07/27/2022 COVID-19 Pfizer mRNA, LNP-S, PF 30mcg/0.3mL Vaccine 12yrs+ 08/10/2021,01/25/2021,12/22/2020 INFLUENZA,SPLIT VIRUS,TRIVALENT,PF 07/29/2015, Influenza Pediatric Quadriva lent Preservative Free 07/22/2019 Influenza Quadrivalent Preservative Free 019 Influenza, High Dose, Quadrivalent 07/26/2021 Influenza,Quadrivalent,MDCK, Preservative Free INJ 08/02/2017 Novel H1N1, z all formulations 11/11/2009 Family History Medical History Relation Comments Cancer Brother lung Diabetes Mother Type 2 age relat ed Heart disease Mother Relation Status Comments Brother Mother Alive Social History Tobacco Use Types Packs/Day Years Used Date Smoking Tobacco: Never Smokeless Tobacco: Never Tobacco Cessation:Counseling Given: Not Answered Alcohol Use Standard Drinks/Week Comments Never 0 (1 standard drink = 0.6 oz pur e alcohol) Sex and Gender Information Value Date Recorded Sex Assigned at Not on file Legal Sex Male 10:05 AM ASSISTANCE SPECIALIST Gender Identity Not on file Sexual Orientation Not on file Last Filed Vital Signs Vital Sign Reading Time Taken Comments Blood Pressure 104/68 09/25/2025 3:05 PM ASSISTANCE SPECIALIST Pulse 55 09/25/2025 3:05 PM ASSISTANCE SPECIALIST Temperature 36.8 C (98.2 F) 07/03/2023 7:53 PM CDT Respiratory Rate 16 09/19/2024 2:54 PM ASSISTANCE SPECIALIST Oxygen Saturation 100% 09/25/2025 3:05 PM ASSISTANCE SPECIALIST Inhaled Oxygen Concentration - - Weight 61.2 kg (135 lb) 09/25/2025 3:05 PM ASSISTANCE SPECIALIST Height 177.8 cm (5' 10) 09/25/2025 3:05 PM ASSISTANCE SPECIALIST Body Mass Index 19.37 09/25/2025 3:05 PM ASSISTANCE SPECIALIST Plan of Treatment Upcoming Encounters Date Type Department Care Team (Late st Contact Info) Description 09/17/2026 3:15 PM ASSISTANCE SPECIALIST Office Visit [facility] - Cardiology [address] [place] [address], [place] [address] Kervin Raymond MD [address] [place] [address], [place] [address] Health Maintenance Due Date Last Done Comments CT Colonography 1956 Colonoscopy 1956 Colorectal Cancer Screening 1956 FIT-DNA 1956 FIT 1956 FOBT 1956 Sigmoidoscopy 1956 DTaP/Tdap/Td Vaccines (1 - Tdap) 01/27/1975 Pneumococcal Vaccine: 50+ Years (1 of 1 - PCV) 01/27/2006 RSV 60+ (1 - Risk 50-74 years 1-dose series) 01/27/2006 ZOSTER VACCINES (1 of 2) 01/27/2006 Medicare Initial AWV [id number] 03/16/2022 Future Fall Risk 07/03/2024 07/03/2023 COVID-19 Vaccine ( season) 2025 07/27/2022, 08/10/2021, 01/25/2021, Additional history exists INFLUENZA VACCINE 06/16/2025 07/26/2021, , 07/22/2019, Additional history exists HEPATITIS B VACCINES Aged Out No long er eligible based on patient's age to complete this topic HIB VACCINES Aged Out No longer eligi ble based on patient's age to complete this topic HPV Vaccines Aged Out No longer eligi ble based on patient's age to complete this topic Hepatitis A Vaccines Aged Out No long er eligible based on patient's age to complete this topic IPV VACCINES Aged Out No longer eligi ble based on patient's age to complete this topic Meningococcal B Vaccine Aged Out No l onger eligible based on patient's age to complete this topic Meningococcal Vaccine Aged Out No andre indira eligible based on patient's age to complete this topic RSV < 20 Months Aged Out No longer el igible based on patient's age to complete this topic Rotavirus Vaccines Aged Out No longer eligible based on patient's age to complete this topic Procedures Procedure Name Priority Date/Time Associated Diagnosis Comments CBC WITH DIFFERENTIAL Routine 08/07/2025 12:44 PM CDT Screening for iron deficiency anemia Screening, multiphasic Disease of cardiovascular system Hyperlipidemia, unspecified hyperlipidemia type Prostate cancer screening FOLATE Routine 08/07/2025 12:38 PM CDT Screening for iron deficiency anemia Screening, multiphasic Disease of cardiovascular system Hyperlipidemia, unspecified hyperlipidemia type Prostate cancer screening PSA, SERUM Routine 08/07/2025 12:38 PM CDT Screening for iron deficiency anemia Screening, multiphasic Disease of cardiovascular system Hyperlipidemia, unspecified hyperlipidemia type Prostate cancer screening LDL CHOLESTEROL, DIRECT Routine 08/07/2025 12:38 PM CDT Screening for iron deficiency anemia Screening, multiphasic Disease of cardiovascular system Hyperlipidemia, unspecified hyperlipidemia type Prostate cancer screening LIPID PANEL WITH REFLEX, PLASMA Routine 08/07/2025 12:38 PM CDT Screening for iron deficiency anemia Screening, multiphasic Disease of cardiovascular system Hyperlipidemia, unspecified hyperlipidemia type Prostate cancer screening BASIC METABOLIC PANEL Routine 08/07/2025 12:38 PM CDT Screening for iron deficiency anemia Screening, multiphasic Disease of cardiovascular system Hyperlipidemia, unspecified hyperlipidemia type Prostate cancer screening VITAMIN B12 Routine 08/07/2025 12:38 PM CDT Screening for iron deficiency anemia Screening, multiphasic Disease of cardiovascular system Hyperlipidemia, unspecified hyperlipidemia type Prostate cancer screening URINALYSIS WITH MICROSCOPIC REFLEX TO CULTURE Routine 08/07/2025 12:32 PM CDT Screening for iron deficiency anemia Screening, multiphasic Disease of cardiovascular system Hyperlipidemia, unspecified hyperlipidemia type Prostate cancer screening from Last 3 Months Results * CBC with Differential (08/07/2025 12:44 PM CDT) WBC 6.35 4.50 - 11.00 10*3/uL 08/07/2025 12:54 PM [facility] RBC 4.43 4.20 - 5.70 10*6/uL 08/07/2025 12:54 PM [facility] HGB 13.8 12.0 - 17.5 g/dL 08/07/2025 12:54 PM [facility] HCT 42.6 35.0 - 52.5 % 08/07/2025 12:54 PM [facility] MCV 96.2 80.0 - 100.0 fL 08/07/2025 12:54 PM [facility] MCH 31.2 25.0 - 35.0 pg 08/07/2025 12:54 PM [facility] MCHC 32.4 31.0 - 37.0 g/dL 08/07/2025 12:54 PM [facility] RDW-SD 42.2 36.0 - 51.0 fL 08/07/2025 12:54 PM [facility] RDW-CV 11.9 11.6 - 14.2 % 08/07/2025 12:54 PM [facility] NRBCS % AUTOMATED 0.0 % 08/07/2025 12:54 PM [facility] NRBCS # AUTOMATED <0.01 0.00 - 0.10 10*3/uL 08/07/2025 12:54 PM [facility] MPV 9.4 9.2 - 12.8 fL 08/07/2025 12:54 PM T [facility] PLT 304 130 - 450 10*3/uL 08/07/2025 12:54 PM T [facility] Neutrophils # 3.37 1.70 - 7.00 10*3/uL 08/07/2025 12:54 PM T [facility] Lymphocytes # 2.31 1.50 - 4.00 10*3/uL 08/07/2025 12:54 PM T [facility] Monocyte # 0.52 0.17 - 1.39 10*3/uL 08/07/2025 12:54 PM T [facility] Eosinophils # 0.11 0.00 - 0.45 10*3/uL 08/07/2025 12:54 PM T [facility] Basophils # 0.03 0.00 - 0.15 10*3/uL 08/07/2025 12:54 PM T [facility] Immature Granulocyte # 0.01 0.00 - 0.04 10*3/uL 08/07/2025 12:54 PM T [facility] Neutrophils % 53.0 % 08/07/2025 12:54 PM T [facility] Lymphocytes % 36.4 % 08/07/2025 12:54 PM T [facility] Monocytes % 8.2 % 08/07/2025 12:54 PM T [facility] Eosinophils % 1.7 % 08/07/2025 12:54 PM T [facility] Basophils % 0.5 % 08/07/2025 12:54 PM T [facility] Immature Granulocyte % 0.2 % 08/07/2025 12:54 PM [facility] Whole blood BLOOD SPECIMEN / Unknown Venipuncture / -0.01 mL 08/07/2025 12:44 PM CDT 08/07/2025 12:44 PM CDT us Ora Falcon NP LAB BLOOD ORDERABLES Final Result [facility] [address] [facility] [place] [address], [facility] [phone] [facility] [address] [facility] [place] [address], [place] [address] * Lipid Panel with Reflex (08/07/2025 12:38 PM T) Cholesterol 135 0 - 199 mg/dL 08/07/2025 1:12 PM [facility] Comment: ATP III Total Cholesterol Classification: <200 mg/dL Desirable 200-239 mg/dL Borderline high >239 mg/dL High Triglycerides 52 0 - 149 mg/dL 08/07/2025 1:12 PM [facility] Comment: ATP III Triglycerides Classification: <150 mg/dL Normal 150-199 mg/dL Borderline high 200-499 mg/dL High >499 mg/dL Very high HDL Cholesterol 64 40 - 100 mg/dL 08/07/2025 1:12 PM [facility] Comment: ATP III HDL Cholesterol Classification: <40 mg/dL Low >59 mg/dL Acceptable LDL Cholesterol Friedewald Equation 61 0 - 129 mg/dL 08/07/2025 1:12 PM [facility] Comment: ATP III LDL Cholesterol Classification: <100 mg/dL Optimal 100-129 mg/dL Above optimal 130-159 mg/dL Borderline high 160-189 mg/dL High >189 mg/dL Very high Non-HDL Cholesterol 71 mg/dL 08/07/2025 1:12 PM [facility] Chol/HDL Ratio 2.1 08/07/2025 1:12 PM [facility] Comment: Non-fasting lipids are endorsed by the 2013 [place] College [employer] Cardiology/[place] Heart Association (ACC/AHA) guidelines, in which a follow-up fasting sample is recommended if triglycerides exceed normal levels. Fasting samples are also recommended prior to starting a treatment that could result in high triglycerides/hyperlipidemia and for monitoring of increased triglyceride/hyperlipidemia in familial hyperlipidemia. Plasma BLOOD SPECIMEN / Unknown Venipuncture / -0.01 mL 08/07/2025 12:38 PM CDT 08/07/2025 12:38 PM T us Ora Falcon NP LAB BLOOD ORDERABLES Final Result [facility] [address] [place] [address], [facility] [phone] [facility] [address] [facility] [place] [address], [place] [address] * PSA, Serum (08/07/2025 12:38 PM CDT) Pathologist [facility] PSA, SERUM 0.62 0.00 - 4.00 ng/mL 08/07/2025 1:43 PM CDT [facility] Comment: Values obtained from different assay methods cannot be directly compared, and thus cannot be used interchangeably. The PSA testing method is an electrochemiluminescence immunoassay manufactured by [employer] and performed on the Vilma [id number]. BLOOD SPECIMEN / Unknown Venipuncture / -0.01 mL 08/07/2025 12:38 PM CDT 08/07/2025 12:38 PM CDT Ora Falcon BOBTAILER LAB BLOOD ORDERABLES Final Result Performing Organization Address [facility] Co de Phone Number [address] [place] [address] [place] [address] [place] [facility] * LDL Cholesterol, Direct (08/07/2025 12:38 PM CDT) [facility] LDL Cholesterol, Direct 67 0 - 129 mg/dL 08/07/2025 1:12 PM CDT [facility] Comment: ATP III LDL Cholesterol Classification: <100 mg/dL Optimal 100-129 mg/dL Above optimal 130-159 mg/dL Borderline high 160-189 mg/dL High >189 mg/dL Very high Plasma BLOOD SPECIMEN / Unknown Venipuncture / -0.01 mL 08/07/2025 12:38 PM CDT 08/07/2025 12:38 PM CDT Ora Falcon BOBTAILER LAB BLOOD ORDERABLES Final Result Performing Organization Address [facility]/ZIP Co de Phone Number [address] [place] [address] [place] [address] [place] [facility] * Folate (08/07/2025 12:38 PM CDT) Folate 16.0 4.8 - 24.2 ng/mL 08/07/2025 1:43 PM CDT [facility] Comment: Megadoses of biotin may interfere with [...] CDT 08/07/2025 12:38 PM CDT Ora Falcon LAB BLOOD ORDERABLES Final Result Performing Organization Address [facility] de Phone Number [address] [phone] [place] [address] * Vitamin B12 (08/07/2025 12:38 PM CDT) Pathologist [facility] Vitamin B-12 969 232 - 1,245 pg/mL 08/07/2025 1:43 PM CDT [facility] Comment: Megadoses of biotin may interfere with [...] CDT 08/07/2025 12:38 PM CDT Ora Falcon BOBTAILER LAB BLOOD ORDERABLES Final Result Performing Organization Address [facility] de Phone Number [address] [phone] [place] [address] * (ABNORMAL) Basic Metabolic Panel (08/07/2025 12:38 PM T) Glucose 99 70 - 99 mg/dL 08/07/2025 1:12 PM [facility] BUN 15 7 - 21 mg/dL 08/07/2025 1:12 PM [facility] Creatinine 0.87 0.50 - 1.20 mg/dL 08/07/2025 1:12 PM [facility] eGFR CKD-EPI DERIVED 2020 93 60 - 200 mL/min/(1. 73_m2) 08/07/2025 1:12 PM [facility] Comment: This estimate should be used for screening purposes only. A creatinine clearance should be obtained for use adjusting medication dosages or when choosing potentially nephrotoxic medications. Reported eGFR is based on the CKD-EPI 2020 equation that does not use a race coefficient. Calcium 9.3 8.5 - 10.2 mg/dL 08/07/2025 1:12 PM [facility] Sodium 140 136 - 145 mmol/L 08/07/2025 1:12 PM [facility] Potassium 4.3 3.4 - 5.1 mmol/L 08/07/2025 1:12 PM [facility] Chloride 100 98 - 107 mmol/L 08/07/2025 1:12 PM [facility] CO2 32(H) 22 - 29 mmol/L 08/07/2025 1:12 PM [facility] Anion Gap 8 5 - 19 mmol/L 08/07/2025 1:12 PM [facility] Plasma BLOOD SPECIMEN / Unknown Venipuncture / -0.01 mL 08/07/2025 12:38 PM CDT 08/07/2025 12:38 PM T us rOa Falcon NP LAB BLOOD ORDERABLES Final Result [address], [place] [facility], [facility] [phone] [place] [address] * Urinalysis with Microscopic Reflex to Culture (08/07/2025 12:32 PM [facility]) Type CLEAN CATCH 08/07/2025 3:15 PM [facility] Color Yellow YELLOW 08/07/2025 3:15 PM [facility] Appearance Clear CLEAR 08/07/2025 3:15 PM [facility] Specific [place] 1.007 1.005 - 1.030 08/07/2025 3:15 PM [facility] pH 7.0 5.0 - 8.0 08/07/2025 3:15 PM [facility] Protein Negative NEGATIVE mg/dL 08/07/2025 3:15 PM [facility] Glucose Negative NEGATIVE mg/dL 08/07/2025 3:15 PM [facility] Ketones Negative NEGATIVE mg/dL 08/07/2025 3:15 PM [facility] Bililrubin Negative NEGATIVE 08/07/2025 3:15 PM [facility] Blood Negative NEGATIVE 08/07/2025 3:15 PM [facility] Nitrites Negative NEGATIVE 08/07/2025 3:15 PM [facility] Urobilinogen Normal NORMAL mg/dL 08/07/2025 3:15 PM [facility] WBC Esterase Negative NEGATIVE 08/07/2025 3:15 PM [facility] RBC 1 0 - 3 /[HPF] 08/07/2025 3:15 PM [facility] WBC 0 0 - 3 /[HPF] 08/07/2025 3:15 PM [facility] Epithelial Cells 0 0 - 5 /[HPF] 08/07/2025 3:15 PM [facility] Hyaline Casts <4 0 - 3 /[LPF] 08/07/2025 3:15 PM [facility] Bacteria Negative NEGATIVE-TR SUDHAKAR /[HPF] 08/07/2025 3:15 PM [facility] Urine Culture Reflex Not Indicated 08/07/2025 3:15 PM [facility] Comment: Urine Culture NOT Indicated based on the outcome of testing of reflex criteria. Urine Unknown / -0.01 mL 12:32 PM CDT 08/07/2025 3:05 PM [facility] Ora Cohenikiotes BOBTAILER URINE ORDERABLES Jesika l Result [facility] [address] [facility] [place] [address], [facility] [phone] [facility] [address] [facility]/[address] [place] [address], [place] [address] from [place] [address] [place] [id number] [employer] [id number] [employer] [place] [id number] [employer] [place] [phone] [employer] [place] [id number] [employer] SPECIAL $49 Care Teams Flat Hammerer Relationship Specialty Start Date End Date Dianna Barone MD [address] [place] [address] [place] [address] PCP - General Internal Medicine 08/06/25 [place] [address] [place] [address] Cardiology 06/28/16
[2025-10-04] MEDS: LIDOCAINE 1% LOCAL INJ 10 ML VIAL INFILTRATE (16:54)
[2025-10-04] MEDS: fentaNYL CITRATE INJ (*CRX) 100 MCG/2 ML VIAL 50 MCG IV PUSH (16:54)
[2025-10-04] MEDS: fentaNYL CITRATE INJ (*CRX) 100 MCG/2 ML VIAL 25 MCG IV PUSH (16:55)
--- NOTE | 2025-10-04 17:08 | ED_ITS ---
HPI - Extremity Injury (Upper) General Chief Complaint: Extremity Injury, Upper Stated Complaint: fall, left wrist injury Time Seen by Provider: 10/04/25 15:46 Source: patient Mode of arrival: ambulatory Limitations: no limitations History of Present Illness HPI narrative: This is a 70-year-old male that presents to the emergency department for left wrist injury. Reports he was loading. Full on a ramp. He fell and landed on his right side. Caught himself with his left wrist. He does believe he hit his head. He did not lose consciousness. He is not on anticoagulation. Denies headache, vision changes, vomiting, numbness, weakness. Related Data Allergies Allergy/AdvReac Type Severity Reaction Status Date / Time No Known Allergies Allergy Verified 10/04/25 15:53 Review of Systems Review of Systems: All systems reviewed & are unremarkable except as noted in HPI and below Exam Narrative: GENERAL: Well-appearing, well-nourished, and in no acute distress. HEAD: Normocephalic, atraumatic. EYES: PERRLA and EOMI. ENT: Nares clear, no rhinorrhea or epistaxis. Mucous membranes moist. Oropharynx without tonsillar hypertrophy exudate or other lesions. Bilateral TMs pearly fernandez non-bulging NECK: Supple. No adenopathy or masses. CHEST: Clear to auscultation. No respiratory distress. No wheezes rales or rhonchi HEART: Regular rate and rhythm. No murmur heard. Normal peripheral pulses. EXTREMITIES: Normal range of motion, except decreased active ROM in the left wrist with obvious deformity. Normal radial pulse SKIN: Warm, dry, no rash. NEURO: No focal deficits. Alert and oriented x3. Cranial nerves 2-12 grossly intact PSYCH: Normal mood and affect Course Vital Signs Vital signs: Vital Signs Temperature 97.9 F 10/04/25 15:47 Pulse Rate 61 10/04/25 15:47 Respiratory Rate 16 10/04/25 15:47 Blood Pressure 150/68 H 10/04/25 15:47 Pulse Oximetry 100 10/04/25 15:47 Oxygen Delivery Room Air 10/04/25 15:47 Temperature 97.9 F 10/04/25 15:47 Pulse Rate 61 10/04/25 15:47 Respiratory Rate 16 10/04/25 15:47 Blood Pressure 150/68 H 12/20/25 15:47 Pulse Oximetry 100 10/04/25 15:47 Oxygen Delivery Room Air 10/04/25 15:47 Procedures Orthopedic Fracture Reduction Fracture #1: Fracture Reduction date: 10/04/25 Time Out Performed: Yes Side: left Fracture Reduction Location: radius Analgesia: hematoma block Pre-Procedure Neuro Vascular Exam: normal Technique: direct manipulation Post Reduction X-rays Demonstrate: acceptable reduction Post-reduction neuro exam: intact Post-reduction vascular exam: intact Splint Applied: Yes Patient Tolerated Procedure: well and no complications Orthopedic Splinting/Casting Injury #1: Splinting/Casting Date: 10/04/25 Side: left Upper Extremity Injury Location: wrist Splint: customized in ED OCL: sugar tong Pre-Procedure Neuro Vascular Exam: normal Post-Procedure Neuro Vascular Exam: normal Other Orthopedic Equipment: other (sling) MDM MDM Narrative Medical decision making narrative: Patient presents emergency department after a fall today with left wrist injury. He is neurovascularly intact. Left wrist x-ray showing displaced distal radius fracture. This was reduced and splint placed with improvement in alignment. Patient does not live in this area. He will be traveling home tonight. I instructed him and his family that he needs to have some follow-up with an orthopedist at home as soon as possible as he will need surgery. Given warnings to return to the ER Differential Diagnosis Differential Diagnosis: Distal radius fracture, wrist sprain Imaging Data Radiologist's impression: ITS Impressions Forearm X-Ray 10/04/25 17:12 IMPRESSION: 1. Fractures of distal radius and ulnar styloid process as described above. Wrist X-Ray 10/04/25 17:12 IMPRESSION: 1. Fractures of distal radius and ulnar styloid process as described above. Critical Care Time Critical Care Time Critical Care Time: No Discharge Plan Discharge Clinical Impression: Distal radius fracture, left Qualifiers: Encounter type: initial encounter Fracture type: closed Fracture morphology: unspecified fracture morphology Qualified Code(s): S52.502A - Unspecified fracture of the lower end of left radius, initial encounter for closed fracture Patient Disposition: Home Condition: Stable Instructions: Wrist Fracture in Adults (ED) Additional Instructions: Return to the ER if you experience fever, redness and swelling of your extremity, numbness or any other symptoms that are concerning to you Wear splint. No weight on the affected extremity. Ice and elevate. Over the counter pain medication as needed. Prescribed pain medication as needed and directed. Follow up with orthopedics for further care. Call first thing Monday morning to have your primary help arrange you some follow up Patient Language: Setswana Prescriptions: New hydrocodone-acetaminophen 5-325 mg tablet 1 tablet PO Q6H PRN (Reason: pain) Qty: 20 0RF Follow-up/Referrals: PHYSICIAN NOT ON STAFF,NONSTAFF [Primary Care Provider]
[2025-10-04 18:04] VITALS: BP 118/79; PULSE 68; RESP 18; TEMP 36.6; O2SAT 99
== END 2025-10-04 18:05 | disposition home or self-care (01) ==
PROVIDERS: Emergency Provider Physician Assistant
DX: S52.592A Other fractures of lower end of left radius, initial encounter for closed fracture (principal); S52.612A Displaced fracture of left ulna styloid process, initial encounter for closed fracture; W10.2XXA Fall (on)(from) incline, initial encounter
CPT/HCPCS: 25605; 25624; 73090; 73100; 73110; 96374; 99285; A4565; J2003; J3010